=== PATIENT | male | born 1945 | race Caucasian/White ===

== ENCOUNTER → 2019-04-18 12:01 | Outpatient (BNVA) | payer MEDICARE, OTHER, SELFPAY | PROVIDERS: Family Provider Family Medicine; PCP Family Medicine; Visit Provider Nurse Practitioner | DX: E11.9 Type 2 diabetes mellitus without complications (principal); E03.9 Hypothyroidism, unspecified | CPT/HCPCS: 36415; 83036 ==

== ENCOUNTER → 2019-06-28 11:21 | Outpatient (BNVA) | payer MEDICARE, OTHER, SELFPAY | PROVIDERS: Family Provider Family Medicine; PCP Family Medicine; Visit Provider Nurse Practitioner | DX: E11.9 Type 2 diabetes mellitus without complications (principal) | CPT/HCPCS: 83036 ==

== ENCOUNTER → 2020-01-17 08:46 | Outpatient (BNVA) | payer MEDICARE, OTHER, SELFPAY | PROVIDERS: Family Provider Family Medicine; PCP Family Medicine; Visit Provider Nurse Practitioner Family | DX: I10 Essential (primary) hypertension (principal); E03.9 Hypothyroidism, unspecified; E78.2 Mixed hyperlipidemia; E11.9 Type 2 diabetes mellitus without complications; Z12.5 Encounter for screening for malignant neoplasm of prostate | CPT/HCPCS: 80053; 80061; 81003; 82306; 83036; 84443; 85025; G0103 ==

== ENCOUNTER → 2020-04-21 09:23 | Outpatient (BNVA) | payer MEDICARE, OTHER, SELFPAY | PROVIDERS: Family Provider Family Medicine; PCP Family Medicine; Visit Provider Nurse Practitioner Family | DX: I10 Essential (primary) hypertension (principal); E03.9 Hypothyroidism, unspecified; E11.9 Type 2 diabetes mellitus without complications; E55.9 Vitamin D deficiency, unspecified | CPT/HCPCS: 80053; 82306; 83036; 83735; 84443 ==

== ENCOUNTER 2020-05-28 12:41 | Outpatient (CLI) | payer MEDICARE, OTHER, SELFPAY ==
--- NOTE | 2020-05-28 12:53 | CT_ITS ---
WS: [id number] LDCT LUNG CANCER SCREENING TECHNIQUE: Noncontrast CT of the chest with coronal and sagittal reformatted images. CLINICAL INFORMATION: HX OF TOBACCO USE COMPARISON: None. DLP: 57.75 mGy.cm DIvol: 1.[address] scans at [facility] use at least one of these dose optimization techniques: automat ed exposure control; mA and/or kV adjustment per patient size (includes targeted exams where dose is matched to clinical indication); or iterative reconstruction. FINDINGS: Both lungs are well aerated. No acute pulmonary infiltrates. No focal pneumonia or pleural fluid. Jefe cified granuloma left upper lobe. No suspicious pulmonary parenchymal abnormalities. Mild aortic calc ification. Coronary calcification. Adrenal glands are normal. Splenic artery calcification. CT/CT lung screening [id number] IMPRESSION: LUNG-RADS: 2-Benign Appearance or Behavior FOLLOW UP: 12 Month: Continue annual screening with LDCT
== END 2020-05-28 12:42 | disposition home or self-care (01) ==
LOC: RAD 12:44
PROVIDERS: PCP Nurse Practitioner Family; Visit Provider Nurse Practitioner Family
DX: Z12.2 Encounter for screening for malignant neoplasm of respiratory organs (principal); Z87.891 Personal history of nicotine dependence
CPT/HCPCS: 71271

== ENCOUNTER → 2020-06-04 13:42 | Outpatient (BNVA) | payer MEDICARE, OTHER, SELFPAY | PROVIDERS: PCP Nurse Practitioner Family; Referring Provider Nurse Practitioner Family; Visit Provider Specialist | DX: M19.041 Primary osteoarthritis, right hand; Z46.89 Encounter for fitting and adjustment of other specified devices; M18.11 Unilateral primary osteoarthritis of first carpometacarpal joint, right hand | CPT/HCPCS: 73130; 97760; L3924 ==

== ENCOUNTER 2020-06-04 14:18 | Outpatient (CLI) | payer MEDICARE, OTHER, SELFPAY | END 2020-06-04 14:19 | disposition home or self-care (01) | LOC: SPT 14:19 | PROVIDERS: PCP Nurse Practitioner Family; Visit Provider Specialist | DX: Z46.89 Encounter for fitting and adjustment of other specified devices (principal); M18.11 Unilateral primary osteoarthritis of first carpometacarpal joint, right hand | CPT/HCPCS: 97760; L3924 ==

== ENCOUNTER → 2020-06-26 11:05 | Outpatient (BNVA) | payer MEDICARE, OTHER, SELFPAY | PROVIDERS: PCP Nurse Practitioner Family; Visit Provider Internal Medicine Pulmonary Disease | DX: R06.02 Shortness of breath (principal); Z20.822 Contact with and (suspected) exposure to COVID-19 | CPT/HCPCS: 87635 ==

== ENCOUNTER 2020-06-30 12:43 | Outpatient (CLI) | payer MEDICARE, OTHER, SELFPAY ==
--- NOTE | 2020-06-30 13:41 | PFTS_ITS ---
Date of Study:06/30/20 Date of Dictation: 07/01/2020 MECHANICS: Postbronchodilator forced vital capacity (FVC) is normal. Postbronchodilator Forced expiratory volume in one second (FEV1) is mildly reduced to 89%. FEV1/FVC is reduced. There is no significant response to bronchodilator FLOW VOLUME LOOP: Sloping of expiratory limb suggestive of airway obstruction . LUNG VOLUMES: Total lung capacity (TLC) is normal. Residual volume (RV) is normal. DIFFUSING CAPACITY FOR CARBON MONOXIDE: Normal . INTERPRETATION: The pulmonary function tests are consistent with mild obstructive ventilatory defect. Normal lung volumes and normal gas transfer. There is no significant response to bronchodilators. Please correlate clinically. MTDD
== END 2020-06-30 12:44 | disposition home or self-care (01) ==
LOC: RT 12:46
PROVIDERS: PCP Nurse Practitioner Family; Visit Provider Internal Medicine Pulmonary Disease
DX: R06.02 Shortness of breath (principal)
CPT/HCPCS: 94060; 94618; 94726; 94729; J7611

== ENCOUNTER → 2020-07-23 09:32 | Outpatient (BNVA) | payer MEDICARE, OTHER, SELFPAY | PROVIDERS: PCP Nurse Practitioner Family; Visit Provider Nurse Practitioner Family | DX: E11.9 Type 2 diabetes mellitus without complications (principal) | CPT/HCPCS: 80053; 82607; 83036; 85025 ==

== ENCOUNTER → 2020-07-25 14:42 | Outpatient (BNVA) | payer MEDICARE, OTHER, SELFPAY | PROVIDERS: PCP Nurse Practitioner Family; Visit Provider Nurse Practitioner Family | DX: E53.8 Deficiency of other specified B group vitamins (principal) | CPT/HCPCS: 83921 ==

== ENCOUNTER → 2020-12-03 09:17 | Outpatient (BNVA) | payer MEDICARE, OTHER, SELFPAY | PROVIDERS: PCP Nurse Practitioner Family; Visit Provider Nurse Practitioner Family | DX: M19.072 Primary osteoarthritis, left ankle and foot (principal); M79.672 Pain in left foot; E55.9 Vitamin D deficiency, unspecified; I10 Essential (primary) hypertension; E03.9 Hypothyroidism, unspecified; E11.9 Type 2 diabetes mellitus without complications; E78.2 Mixed hyperlipidemia; Z12.5 Encounter for screening for malignant neoplasm of prostate; Z79.899 Other long term (current) drug therapy | CPT/HCPCS: 73630; 80053; 80061; 81003; 82306; 83036; 83735; 84443; 85025; G0103 ==

== ENCOUNTER → 2021-03-16 13:39 | Outpatient (BNVA) | payer MEDICARE, OTHER, SELFPAY | PROVIDERS: PCP Nurse Practitioner Family; Referring Provider Nurse Practitioner Family; Visit Provider Podiatrist Foot & Ankle Surgery | DX: M19.072 Primary osteoarthritis, left ankle and foot (principal); M19.071 Primary osteoarthritis, right ankle and foot; M79.671 Pain in right foot; M79.672 Pain in left foot; M77.9 Enthesopathy, unspecified; M19.079 Primary osteoarthritis, unspecified ankle and foot | CPT/HCPCS: 73630 ==

== ENCOUNTER 2021-04-22 15:44 | Outpatient (CLI) | payer MEDICARE, OTHER, SELFPAY | END 2021-04-22 15:45 | disposition home or self-care (01) | LOC: SPT 15:45 | PROVIDERS: PCP Nurse Practitioner Family; Visit Provider Podiatrist Foot & Ankle Surgery | DX: Z46.89 Encounter for fitting and adjustment of other specified devices (principal); M19.079 Primary osteoarthritis, unspecified ankle and foot; M77.9 Enthesopathy, unspecified | CPT/HCPCS: 80053; 80061; 81003; 82306; 83036; 84439; 84443; 85025; 97760; G0103; L3030 ==

== ENCOUNTER 2021-09-15 13:37 | Outpatient (CLI) | payer MEDICARE, OTHER, SELFPAY ==
--- NOTE | 2021-09-15 14:00 | CT_ITS ---
WS: [id number] LDCT LUNG CANCER SCREENING HISTORY: lung screening TECHNIQUE: Axial imaging performed from the apices to 1 cm below the costophrenic angles. Coronal and sagittal reformats are submitted with axial MIP series. All CT scans at [facility] use at least one of these dose optimization techniques: automated exposure control; mA and/or kV adjustment per patient size (includes targeted exams where dose is matched to clinical indication); or iterativ e reconstruction. DLP: 80.51 mGy.cm DIvol: Mean CTDIvol: 1.60 (mGy) COMPARISON: 05/28/2020 Diagnostic quality: Satisfactory Lung Nodules: No pulmonary nodule or endobronchial lesion. Lungs: New curvilinear thin opacification posterior RIGHT upper lobe consistent with atelectasis. Mil d chronic emphysema. Heart: Normal size heart. No pericardial effusion. Heavy calcification within the iqugmiut coronary art eries. Other findings: Normal size pulmonary artery. Very minimal atherosclerosis aorta. No adenopathy. Smal l hiatal hernia. Normal size adrenal. Remote healed rib fractures in the posterior RIGHT upper thorax . CT/CT lung screening [id number] IMPRESSION: LUNG-RADS: 1-Negative FOLLOW UP: 12 Month: Continue annual screening with LDCT OTHER FINDINGS (S MODIFIER): None.
== END 2021-09-15 13:38 | disposition home or self-care (01) ==
LOC: RAD 13:39
PROVIDERS: PCP Nurse Practitioner Family; Visit Provider Internal Medicine Pulmonary Disease
DX: Z12.2 Encounter for screening for malignant neoplasm of respiratory organs (principal); Z87.891 Personal history of nicotine dependence; E78.5 Hyperlipidemia, unspecified; I10 Essential (primary) hypertension
CPT/HCPCS: 71271; 80053; 80061; 84443; 85025

== ENCOUNTER → 2022-03-02 09:20 | Outpatient (BNVA) | payer MEDICARE, OTHER, SELFPAY | PROVIDERS: PCP Nurse Practitioner; Visit Provider Nurse Practitioner | DX: E11.9 Type 2 diabetes mellitus without complications (principal); E78.2 Mixed hyperlipidemia; I10 Essential (primary) hypertension; R19.7 Diarrhea, unspecified | CPT/HCPCS: 80053; 80061; 83036; 87177; 87209; 87493; 87506 ==

== ENCOUNTER → 2022-04-20 15:04 | Outpatient (BNVA) | payer MEDICARE, OTHER, SELFPAY | PROVIDERS: PCP Nurse Practitioner; Visit Provider Podiatrist Foot & Ankle Surgery | DX: M19.072 Primary osteoarthritis, left ankle and foot (principal); M20.21 Hallux rigidus, right foot; M20.22 Hallux rigidus, left foot; E11.9 Type 2 diabetes mellitus without complications; M76.822 Posterior tibial tendinitis, left leg | CPT/HCPCS: 73630; 99214 ==

== ENCOUNTER 2022-05-26 15:42 | Outpatient (CLI) | payer MEDICARE, OTHER, SELFPAY | END 2022-05-26 15:43 | disposition home or self-care (01) | LOC: SPT 15:43 | PROVIDERS: PCP Nurse Practitioner; Visit Provider Podiatrist Foot & Ankle Surgery | DX: Z46.89 Encounter for fitting and adjustment of other specified devices (principal); M20.21 Hallux rigidus, right foot; M20.22 Hallux rigidus, left foot; E11.9 Type 2 diabetes mellitus without complications; M76.822 Posterior tibial tendinitis, left leg | CPT/HCPCS: 97760; 99213; L3030 ==

== ENCOUNTER → 2022-09-15 10:25 | Outpatient (BNVA) | payer MEDICARE, OTHER, SELFPAY | PROVIDERS: PCP Nurse Practitioner; Visit Provider Nurse Practitioner | DX: E55.9 Vitamin D deficiency, unspecified (principal); E78.2 Mixed hyperlipidemia; I10 Essential (primary) hypertension; E03.9 Hypothyroidism, unspecified; E11.9 Type 2 diabetes mellitus without complications; Z12.2 Encounter for screening for malignant neoplasm of respiratory organs; Z12.5 Encounter for screening for malignant neoplasm of prostate | CPT/HCPCS: 80053; 80061; 83036; 84443; 85025; G0103 ==

== ENCOUNTER → 2022-12-01 10:18 | Outpatient (BNVA) | payer MEDICARE, OTHER, SELFPAY | PROVIDERS: PCP Nurse Practitioner; Visit Provider Internal Medicine Cardiovascular Disease | DX: I10 Essential (primary) hypertension (principal); I25.10 Atherosclerotic heart disease of native coronary artery without angina pectoris; E03.9 Hypothyroidism, unspecified; E11.9 Type 2 diabetes mellitus without complications; R06.02 Shortness of breath; I11.0 Hypertensive heart disease with heart failure; I50.9 Heart failure, unspecified; E78.2 Mixed hyperlipidemia; Z87.891 Personal history of nicotine dependence; R94.31 Abnormal electrocardiogram [ECG] [EKG] | CPT/HCPCS: 93005; 99204 ==

== ENCOUNTER 2023-01-26 14:38 | Outpatient (CLI) | payer MEDICARE, OTHER, SELFPAY ==
--- NOTE | 2023-01-26 15:00 | USCV_ITS ---
Alan Richards Age: 77 Gender: M : 1945 Exam Date: 01/26/2023 15:03 Ordering Phys: Princess Eugene MD ([email or web address]) Technologist: CT Exam Location: [facility] [place] Indication: cad,sob BP: 128 / 75 HR: 64 Rhythm: Sinus Technical Quality: Adequate MEASUREMENTS (Male / Female) Normal Values 2D ECHO LV Chamber Size 4.8 cm RV Chamber Size 3.6 cm LVOT Diameter 2.0 cm LV Ejection Fraction MOD 2C 46.8 % LV Ejection Fraction 2C AL 46.7 % LA Diameter 4.3 cm LA Width 5.2 cm LA Height 5.3 cm RA Width 3.7 cm RA Height 4.9 cm Aorta at Sinotubular Diameter 2.3 cm IVC Diameter 1.6 cm M-MODE Aortic Annulus Diameter 3.3 cm LA Ao Ratio MM 1.4 MV E Point Septal Separation 1.0 cm DOPPLER AV Peak Velocity 249.0 cm/s LVOT Peak Velocity 90.0 cm/s AV Area Cont Eq vti 1.4 cm squared AV Area Cont Eq pk 1.1 cm squared MV Peak Velocity 113.0 cm/s MV E' Velocity 7.0 cm/s TR Peak Velocity 241.0 cm/s TR Peak Gradient 23.2 mmHg TV Peak E Velocity 64.0 cm/s Right Atrial Pressure 3.0 mmHg Pulmonary Artery Systolic Pressu 26.2 mmHg PV Peak Velocity 181.0 cm/s FINDINGS Left Ventricle Normal left ventricular cavity size. Mildly decreased left ventricular systolic function. Left ventricular ejection fraction is estimated at 45 %. Moderate to severe apical hypokinesis. Grade II diastolic dysfunction, moderately elevated filling pressures. Right Ventricle Normal right ventricular size and systolic function. Right ventricular systolic pressure 26.2 mmHg. Right Atrium Normal right atrial size. Left Atrium Moderately increased left atrial size. Mitral Valve Structurally normal mitral valve. No mitral valve stenosis. Trace mitral valve regurgitation. Aortic Valve Mildly thickened trileaflet aortic valve. Aortic valve sclerosis without stenosis. Trace aortic valve regurgitation. Tricuspid Valve Structurally normal tricuspid valve. Trace tricuspid valve regurgitation. Pulmonic Valve Structurally normal pulmonic valve. No pulmonary valve stenosis. No pulmonary valve regurgitation. Pericardium No pericardial effusion. Aorta Normal size aortic root and proximal ascending aorta. IVC Normal IVC dimension with >50% respiratory change of the inferior vena cava. CONCLUSIONS 1. Normal left ventricular cavity size. Mildly decreased left ventricular systolic function. Left ventricular ejection fraction is estimated at 45 %. Moderate to severe apical hypokinesis. Grade II diastolic dysfunction, moderately elevated filling pressures. 2. Normal pulmonary artery pressure. 3. Aortic valve sclerosis without stenosis. 4. No significant change when compared to study dated 03/15/2018. Princess Eugene MD (Electronically Signed) Final Date: 30 January 2023 21:42 S
== END 2023-01-26 14:39 | disposition home or self-care (01) ==
LOC: RAD 14:38
PROVIDERS: PCP Nurse Practitioner; Visit Provider Internal Medicine Cardiovascular Disease
DX: R06.02 Shortness of breath (principal); I25.10 Atherosclerotic heart disease of native coronary artery without angina pectoris; I70.0 Atherosclerosis of aorta
CPT/HCPCS: 93306

== ENCOUNTER → 2023-02-17 12:19 | Outpatient (BNVA) | payer MEDICARE, OTHER, SELFPAY | PROVIDERS: PCP Nurse Practitioner; Visit Provider Nurse Practitioner Family | DX: E03.9 Hypothyroidism, unspecified (principal); E11.9 Type 2 diabetes mellitus without complications; E55.9 Vitamin D deficiency, unspecified; E78.2 Mixed hyperlipidemia; I10 Essential (primary) hypertension; R06.02 Shortness of breath; Z12.5 Encounter for screening for malignant neoplasm of prostate; E23.0 Hypopituitarism | CPT/HCPCS: 80053; 80061; 81003; 82306; 83036; 83880; 84443; 85025 ==

== ENCOUNTER → 2023-03-02 11:37 | Outpatient (BNVA) | payer MEDICARE, OTHER, SELFPAY | PROVIDERS: PCP Nurse Practitioner; Visit Provider Nurse Practitioner Family | DX: N39.0 Urinary tract infection, site not specified (principal) | CPT/HCPCS: 81003; 87077; 87086; 87184 ==

== ENCOUNTER → 2023-03-21 13:35 | Outpatient (BNVA) | payer MEDICARE, OTHER, SELFPAY | PROVIDERS: PCP Nurse Practitioner; Visit Provider Nurse Practitioner Family | DX: N39.0 Urinary tract infection, site not specified (principal) | CPT/HCPCS: 81003 ==

== ENCOUNTER → 2023-03-31 10:46 | Outpatient (BNVA) | payer MEDICARE, OTHER, SELFPAY | PROVIDERS: PCP Nurse Practitioner; Visit Provider Nurse Practitioner Family | DX: L57.8 Other skin changes due to chronic exposure to nonionizing radiation (principal); D22.4 Melanocytic nevi of scalp and neck; L81.4 Other melanin hyperpigmentation; L82.1 Other seborrheic keratosis; L57.0 Actinic keratosis | CPT/HCPCS: 17000; 99213 ==

== ENCOUNTER → 2023-06-03 08:53 | Outpatient (BNVA) | payer MEDICARE, OTHER, SELFPAY | PROVIDERS: PCP Nurse Practitioner Family; Visit Provider Nurse Practitioner Family | DX: E11.9 Type 2 diabetes mellitus without complications (principal); I10 Essential (primary) hypertension | CPT/HCPCS: 80053; 83036; 85025 ==

== ENCOUNTER → 2023-09-20 11:09 | Outpatient (BNVA) | payer MEDICARE, OTHER, SELFPAY | PROVIDERS: PCP Nurse Practitioner Family; Visit Provider Internal Medicine Cardiovascular Disease | DX: I11.0 Hypertensive heart disease with heart failure (principal); I50.9 Heart failure, unspecified; E78.2 Mixed hyperlipidemia; Z87.891 Personal history of nicotine dependence; I25.10 Atherosclerotic heart disease of native coronary artery without angina pectoris; E11.9 Type 2 diabetes mellitus without complications; Z95.5 Presence of coronary angioplasty implant and graft; I25.5 Ischemic cardiomyopathy; I25.2 Old myocardial infarction; Z79.84 Long term (current) use of oral hypoglycemic drugs | CPT/HCPCS: 99214 ==

== ENCOUNTER → 2023-10-03 10:48 | Outpatient (BNVA) | payer MEDICARE, OTHER, SELFPAY | PROVIDERS: PCP Nurse Practitioner Family; Visit Provider Nurse Practitioner Family | DX: E11.9 Type 2 diabetes mellitus without complications (principal) | CPT/HCPCS: 81003; 83036 ==

== ENCOUNTER 2023-11-10 06:00 | Outpatient (RCR) | payer MEDICARE, OTHER, SELFPAY | END 2023-12-03 23:59 | disposition home or self-care (01) | LOC: WPT 06:00 | PROVIDERS: PCP Nurse Practitioner Family; Visit Provider Nurse Practitioner Family | DX: R42 Dizziness and giddiness (principal) | CPT/HCPCS: 97110; 97112; 97161 ==

== ENCOUNTER → 2024-03-19 12:51 | Outpatient (BNVA) | payer MEDICARE, OTHER, SELFPAY | PROVIDERS: PCP Dermatology; Visit Provider Internal Medicine Cardiovascular Disease | DX: I25.10 Atherosclerotic heart disease of native coronary artery without angina pectoris (principal); I25.5 Ischemic cardiomyopathy; I11.0 Hypertensive heart disease with heart failure; I50.9 Heart failure, unspecified; E11.9 Type 2 diabetes mellitus without complications; Z79.84 Long term (current) use of oral hypoglycemic drugs; J44.9 Chronic obstructive pulmonary disease, unspecified; I25.2 Old myocardial infarction | CPT/HCPCS: 99214 ==

== ENCOUNTER → 2024-04-03 10:59 | Outpatient (BNVA) | payer MEDICARE, OTHER, SELFPAY | PROVIDERS: PCP Nurse Practitioner Family; Referring Provider Nurse Practitioner Family; Visit Provider Nurse Practitioner Family | DX: E55.9 Vitamin D deficiency, unspecified (principal); E78.2 Mixed hyperlipidemia; I10 Essential (primary) hypertension; E03.9 Hypothyroidism, unspecified; E11.9 Type 2 diabetes mellitus without complications; I50.9 Heart failure, unspecified; I25.10 Atherosclerotic heart disease of native coronary artery without angina pectoris; Z12.5 Encounter for screening for malignant neoplasm of prostate | CPT/HCPCS: 80053; 80061; 81000; 82306; 83036; 84443; 85025; G0103 ==

== ENCOUNTER → 2024-04-26 10:35 | Outpatient (BNVA) | payer MEDICARE, OTHER, SELFPAY | PROVIDERS: PCP Nurse Practitioner Family; Visit Provider Student in an Organized Health Care Education/Training Program | DX: K21.9 Gastro-esophageal reflux disease without esophagitis (principal) | CPT/HCPCS: 99204 ==

== ENCOUNTER → 2024-05-09 14:30 | Outpatient (BNVA) | payer MEDICARE, OTHER, SELFPAY | PROVIDERS: PCP Nurse Practitioner Family; Visit Provider Nurse Practitioner Family | DX: L81.4 Other melanin hyperpigmentation (principal); L57.8 Other skin changes due to chronic exposure to nonionizing radiation; L82.1 Other seborrheic keratosis; L82.0 Inflamed seborrheic keratosis; L53.8 Other specified erythematous conditions; R58 Hemorrhage, not elsewhere classified; L29.89 Other pruritus; R20.8 Other disturbances of skin sensation; L57.0 Actinic keratosis | CPT/HCPCS: 17000; 17110; 99213 ==

== ENCOUNTER 2024-05-15 10:40 | Day surgery (SDC) | payer MEDICARE, OTHER, SELFPAY ==
--- NOTE | 2024-05-15 10:47 | W.PM.OPSUD ---
Surgery/Procedure H&P Update DATE OF PROCEDURE: May 15, 2024 DATE H&P PERFORMED: 04/26/24 H&P UPDATE INFORMATION: I have reviewed H&P completed within last 30 days, I have examined patient prior to procedure and No changes to prior documentation PLANNED PROCEDURE: Operation Date: 05/15/24 12:15 Proposed Procedures p EGD 97558, K21.9(Not Applicable) - Ike Luis MD
[2024-05-15 10:51] VITALS: BP 161/96; PULSE 65; RESP 18; TEMP 36.4; O2SAT 96
[2024-05-15 10:59] VITALS: BMI 29.7
[2024-05-15] MEDS: sodium chloride 0.9% 500 ML 15 ML IV (11:09)
[2024-05-15 11:14] LABS: Glucose Point of Care 146 mg/dL (70-110)
--- NOTE | 2024-05-15 12:27 | ANES.PREANE2 ---
Pre-Anesthetic Assessment Height/Weight: Height 1.7 m Weight 86.183 kg Temp Pulse Resp BP Pulse Ox O2 Del Method 97.6 F 65 18 161/96 96 Room Air 05/15/24 10:51 05/15/24 10:51 05/15/24 10:51 05/15/24 10:51 05/15/24 10:51 05/15/24 10:51 Preop Diagnosis: GERD Operation Date: 05/15/24 12:15 Proposed Procedures p EGD 67317, K21.9(Not Applicable) - Ike Luis MD Familial anesthetic complications: None Was Clonidine taken within 24 hours: N/A Last intake: Intake Last Liquid Date 05/14/24 Last Liquid Time 23:45 Last Solid Date 05/14/24 Last Solid Time 19:00 Social No alcohol and No tobacco Quit 12 years ago Exam alert, oriented x 3, clear to auscultation bilaterally and regular rate & rhythm Airway Submandibular: within normal limits Cervical ROM: within normal limits Mallampati: Class III History/ROS Other Pulmonary Chronic Obstructive Pulmonary Disease CV/HEM Coronary Artery Disease, Congestive Heart Failure (Ischemic cardiomyopathy, follows cardiology, last echo EF 45% >4METs), Hypertension and Myocardial Infarction (x3 stents) None reported Hepatic None reported GI Gastroesophageal Reflux Disease Metabolic Diabetes Mellitus and Thyroid Disease [place]othy[place] [facility] [place] None reported Neuropsych None reported Anesthetic Plan ASA status: 3 Anesthesia: MAC Risk of > 500 ml blood loss (7ml/kg in children): No Medications/Allergies Home Medications ?Medication ?Instructions ?Recorded ?Confirmed ?Last Taken ?Type cholecalciferol (vitamin D3) 25 25 mcg PO DAILY 04/29/20 05/15/24 05/14/24 History mcg (1,000 unit) capsule chromium picolinate 1,000 mcg 1,000 mcg PO DAILY 04/29/20 05/15/24 05/14/24 History tablet latanoprost 0.005 % eye drops 1 drp ophthalmic (eye) DAILY 04/29/20 05/15/24 05/14/24 History niacin 500 mg tablet 500 mg PO DAILY 04/29/20 05/15/24 05/14/24 History potassium 99 mg tablet 99 mg PO DAILY 04/29/20 05/15/24 05/14/24 History aspirin 81 mg tablet,delayed 81 mg PO DAILY 12/01/22 05/15/24 05/14/24 History release (Adult Low Dose Aspirin) coenzyme Q10 60 mg tablet 10 mg PO DAILY 12/01/22 05/15/24 05/14/24 History dorzolamide 22.3 mg-timolol 6.8 1 drp ophthalmic (eye) BID 12/01/22 05/15/24 05/14/24 History mg/mL eye drops magnesium 250 mg tablet 420 mg PO DAILY 12/01/22 05/15/24 05/14/24 History levothyroxine 75 mcg tablet See Rx Instructions .Route 11/03/23 05/15/24 05/14/24 Rx .COMPLEX #90 tabs sitagliptin phosphate 25 mg tablet See Rx Instructions .Route 03/09/24 05/15/24 05/14/24 Rx (Januvia) .COMPLEX #90 tabs sitagliptin phosphate 50 mg tablet See Rx Instructions .Route 03/09/24 05/15/24 05/14/24 Rx (Januvia) .COMPLEX #90 tabs amlodipine 5 mg tablet 5 mg PO DAILY #90 tabs 03/26/24 05/15/24 05/14/24 Rx atorvastatin 40 mg tablet 40 mg PO DAILY #90 tabs 03/26/24 05/15/24 05/14/24 Rx losartan 50 mg tablet 50 mg PO DAILY #90 tabs 03/26/24 05/15/24 05/14/24 Rx metoprolol succinate 50 mg 50 mg PO DAILY #90 tabs 03/26/24 05/15/24 05/14/24 Rx tablet,extended release 24 hr lansoprazole 30 mg capsule,delayed 30 mg PO DAILY 04/19/24 05/15/24 05/14/24 History release (Prevacid) nitroglycerin 0.4 mg sublingual 0.4 mg sublingual Q5M PRN chest 04/19/24 05/15/24 05/14/24 Rx tablet pain #20 tabs pantoprazole 40 mg tablet,delayed 40 mg PO BID 6 weeks #84 tabs 04/26/24 05/15/24 05/14/24 Rx release (Protonix) Allergies Allergy/AdvReac Type Severity Reaction Status Date / Time alfuzosin Allergy rash Verified 05/15/24 11:10 silodosin Allergy ALGY-Rash Verified 05/15/24 11:10 tamsulosin (From Flomax) Allergy rash Verified 05/15/24 11:10 Current Medications Generic Name Dose Route Start Last Admin Trade Name Freq PRN Reason Stop Dose Admin Sodium Chloride 500 mls @ 15 mls/hr 05/15/24 10:46 05/15/24 11:09 Sodium Chloride 0.9% IV 05/16/24 10:45 15 mls/hr .Q24H PRN Administration COLONOSCOPY FLUIDS PFSH Anesthesia Medical History (Updated 04/22/24 @ 13:38 by ALICIA Hidalgo) Glaucoma Gastroesophageal reflux disease Hiatal hernia Vertigo Old anterior wall myocardial infarction Ischemic cardiomyopathy COPD (chronic obstructive pulmonary disease) Osteoarthritis involving multiple joints on both sides of body rt Hand, rt thumb, Lt foot, CHF (NYHA class III, ACC/AHA stage C) CAD (coronary artery disease) Stents Vitamin D deficiency Mixed hyperlipidemia Essential hypertension Hypothyroidism (acquired) Diabetes Surgical History (Updated 04/26/24 @ 10:50 by DAVID Cameron) Stented coronary artery Status post tonsillectomy Family History (Updated 04/26/24 @ 10:52 by DAVID Cameron) Mother Heart disease Father Heart disease Social History Smoking and tobacco/nicotine status: unknown if used tobacco/nicotine Quit status (tobacco/nicotine): has quit using Year quit tobacco: 2012 [id number] Second hand smoke exposure: No Alcohol intake: current Alcohol intake frequency: 0-2 Drinks per Day Alcohol type: wine Substance/Drug Use: never Lives independently: Yes Household members: spouse Housing: House Marital status: service: No Current occupational status: retired Pets and animals: Yes Do you think of yourself as: Straight/Heterosexual Current gender identity: Male Data Anesthesia Cardiac Studies: Echocardiogram 01/26/23
[2024-05-15 12:42] VITALS: BP 115/74; PULSE 59; RESP 18; TEMP 36.4; O2SAT 95
[2024-05-15 12:57] VITALS: BP 135/88; PULSE 62; RESP 18; O2SAT 95
--- NOTE | 2024-05-15 13:11 | ANE.PACU2 ---
Inpatient post-anesthesia follow up: Airway intact: Yes Vital signs: Temperature 97.6 F Pulse Rate 63 Respiratory Rate 18 Blood Pressure 126/78 Pulse Oximetry 95 Oxygen Delivery Me thod Room Air Oxygen Flow Rate Fraction of Inspir ed Oxygen Hydration adequate: Yes Nausea and vomiting: No Pain level: 1 Mental status: Baseline
[2024-05-15 13:12] VITALS: BP 126/78; PULSE 63; RESP 18; O2SAT 95
== END 2024-05-15 13:11 | disposition home or self-care (01) ==
PROVIDERS: PCP Nurse Practitioner Family; Visit Provider Student in an Organized Health Care Education/Training Program
PROC: 0DJ08ZZ Inspection of Upper Intestinal Tract, Via Natural or Artificial Opening Endoscopic (ICD-10-PCS; principal; 2024-05-15 12:15)
DX: K29.50 Unspecified chronic gastritis without bleeding (principal); K21.9 Gastro-esophageal reflux disease without esophagitis; J44.9 Chronic obstructive pulmonary disease, unspecified; I25.10 Atherosclerotic heart disease of native coronary artery without angina pectoris; I11.0 Hypertensive heart disease with heart failure; I50.9 Heart failure, unspecified; I25.2 Old myocardial infarction; E11.9 Type 2 diabetes mellitus without complications; E03.9 Hypothyroidism, unspecified; Z95.5 Presence of coronary angioplasty implant and graft; Z79.899 Other long term (current) drug therapy; Z79.890 Hormone replacement therapy; Z88.8 Allergy status to other drugs, medicaments and biological substances; E78.2 Mixed hyperlipidemia; Z87.891 Personal history of nicotine dependence
CPT/HCPCS: 36416; 43239; 82962; 88305; J2704; J7040

== ENCOUNTER → 2024-05-24 10:41 | Outpatient (BNVA) | payer MEDICARE, OTHER, SELFPAY | PROVIDERS: PCP Nurse Practitioner Family; Visit Provider Student in an Organized Health Care Education/Training Program | DX: R12 Heartburn (principal); R19.4 Change in bowel habit | CPT/HCPCS: 99214 ==

== ENCOUNTER → 2024-07-16 10:31 | Outpatient (BNVA) | payer MEDICARE, OTHER, SELFPAY | PROVIDERS: PCP Nurse Practitioner Family; Visit Provider Nurse Practitioner Family | DX: M16.11 Unilateral primary osteoarthritis, right hip (principal); E11.9 Type 2 diabetes mellitus without complications; R93.89 Abnormal findings on diagnostic imaging of other specified body structures; I70.90 Unspecified atherosclerosis | CPT/HCPCS: 73502; 80053; 83036; 85025 ==

== ENCOUNTER → 2024-07-25 15:11 | Outpatient (BNVA) | payer MEDICARE, OTHER, SELFPAY | PROVIDERS: PCP Nurse Practitioner Family; Visit Provider Nurse Practitioner Family | DX: L81.4 Other melanin hyperpigmentation (principal); L57.8 Other skin changes due to chronic exposure to nonionizing radiation; L82.1 Other seborrheic keratosis; L82.0 Inflamed seborrheic keratosis; L29.89 Other pruritus; Z78.9 Other specified health status; L57.0 Actinic keratosis | CPT/HCPCS: 17000; 17110; 99213 ==

== ENCOUNTER → 2024-08-01 10:41 | Outpatient (BNVA) | payer MEDICARE, OTHER, SELFPAY | PROVIDERS: PCP Nurse Practitioner Family; Visit Provider Student in an Organized Health Care Education/Training Program | DX: M25.551 Pain in right hip (principal); M70.61 Trochanteric bursitis, right hip; M76.31 Iliotibial band syndrome, right leg | CPT/HCPCS: 99203 ==

== ENCOUNTER 2024-08-02 08:20 | Outpatient (CLI) | payer MEDICARE, OTHER, SELFPAY ==
--- NOTE | 2024-08-02 | ECG_ITS ---
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 The perfusion scan will be documented separately. DATA: Baseline heart rate was 65 beats per minute. Baseline blood pressure was 158/99 millimeters of mercury. Target heart rate was 143. Maximum heart rate achieved was 92. which was 64% of the predicted target heart rate. Maximum blood pressure was 169/101 millimeters of mercury. The reason for ending the test was completion of the protocol. The patient did not experience any symptoms. ELECTROCARDIOGRAM: BASELINE: Sinus rhythm. Normal axis. Interventricular conduction delay, possible old anterior wall myocardial infarction with poor R wave progression, Frequent PVCs noted EXERCISE: After Lexiscan injection, no ST-T changes suggestive of ischemic noted. No arrhythmia noted. CONCLUSION: Please note due to baseline abnormality of the EKG specificity and sensitivity of the EKG portion of LexiScan MIBI stress test will be low 1. EKG not suggestive of ischemia 2. Lexiscan injection unremarkable. 3. Perfusion scan will be documented separately. Electronically Signed On 08-12-2024 17:31:42 CDT by JEFFREY TODD [email or web address]
--- NOTE | 2024-08-02 08:06 | NMCV_ITS ---
NM hillary perf SPECT r/s* [id number] Alan Richards Age: 79 Gender: M : 1945 Exam Date: 08/02/2024 09:23 Ordering Phys: Jeffrey Todd MD ([email or web address]) Technologist: ARTEMIO Topete Exam Location: [facility] Indications: cp STRESS TEST Please see separate stress test report in [facility] for full findings IMAGE PROTOCOL Rest/Stress 1 Lexiscan Day Radiopharmaceutical Dose (mCi) Administration Site Administered by Rest: Tc-99m 10.5 IV Sapna Saavedra BELLY ROLLER Sestamibi Stress:Tc-99m 32.6 IV Sapna Saavedra, BELLY ROLLER Sestamibi Rest: 02-Aug-2024 60 Discovery 630 Stress: 02-Aug-2024 30 Discovery 630 0.4mg Lexiscan. Images obtained in supine and prone position. SPECT RESULTS Technical Quality: Good Raw Data Analysis: Normal Image Corrections: No attenuation or motion correction applied Summed Stress Score: 30 Summed Rest Score: 30 Summed Difference Score: 3 PERFUSION FINDINGS Large area of fixed perfusion defect noted in basal to distal anterior, basal to distal anteroseptal and basal to distal inferior wall suggestive of old myocardial infarction versus scarring in LAD and RCA territory without rahul- infarct ischemia. FUNCTIONAL RESULTS (calculated via Gated SPECT) Stress Image LV EF (%): 32 Stress EDV (mL):214 TID: 1.01 Stress ESV (mL):146 FUNCTIONAL FINDINGS: Anterior and inferior wall hypokinesis IMPRESSIONS Large area of fixed perfusion defect noted in basal to distal anterior, basal to distal anteroseptal and basal to distal inferior wall suggestive of old myocardial infarction versus scarring in LAD and RCA territory without rahul- infarct ischemia. Jeffrey Todd MD (Electronically Signed) Final Date: 07 Aug 2024 13:13 S
[2024-08-02 08:23] VITALS: BMI 30.2
[2024-08-02] MEDS: regadenoson 0.4 Mg/5 ml Syringe IVP (09:45)
[2024-08-02 10:09] VITALS: BP 169/89; PULSE 74
== END 2024-08-02 08:21 | disposition home or self-care (01) ==
LOC: CDL 08:22
PROVIDERS: PCP Nurse Practitioner Family; Visit Provider Internal Medicine Cardiovascular Disease
DX: R07.9 Chest pain, unspecified (principal); R06.02 Shortness of breath; R93.1 Abnormal findings on diagnostic imaging of heart and coronary circulation
CPT/HCPCS: 36415; 78452; 93017; 96374; A9500; J2785

== ENCOUNTER → 2024-10-30 11:06 | Outpatient (BNVA) | payer MEDICARE, OTHER, SELFPAY | PROVIDERS: PCP Nurse Practitioner Family; Visit Provider Nurse Practitioner Family | DX: I25.10 Atherosclerotic heart disease of native coronary artery without angina pectoris (principal); I11.0 Hypertensive heart disease with heart failure; I50.9 Heart failure, unspecified; E78.2 Mixed hyperlipidemia | CPT/HCPCS: 80053; 80061; 85025 ==

== ENCOUNTER → 2024-11-08 13:04 | Outpatient (BNVA) | payer MEDICARE, OTHER, SELFPAY | PROVIDERS: PCP Nurse Practitioner Family; Visit Provider Nurse Practitioner Family | DX: L81.4 Other melanin hyperpigmentation (principal); L57.8 Other skin changes due to chronic exposure to nonionizing radiation; L82.1 Other seborrheic keratosis; D22.5 Melanocytic nevi of trunk | CPT/HCPCS: 17000; 99213 ==